=== PATIENT | male | born 1980 | race Caucasian/White ===

== ENCOUNTER 2016-07-28 00:45 | Emergency (ER) | payer OTHER ==
--- NOTE | 2016-07-28 08:00 | RAD ---
RIGHT ANKLE 3 VIEWS HISTORY: Twisted right ankle, lateral pain. COMPARISONS: None. TECHNIQUE: Frontal, lateral, and oblique views of the right ankle. ALIGNMENT: Grossly unremarkable. Ankle mortise intact. FRACTURE: No displaced acute fracture. SOFT TISSUES: Lateral soft tissue swelling. Joint effusion is evident. RADIOOPAQUE FOREIGN BODY: None. IMPRESSION: No gross malalignment or displaced acute fracture noted. Lateral soft tissue swelling and joint effusion.
== END 2016-07-28 01:56 | disposition home or self-care (01) ==
LOC: ED 00:45
DX: M25.571 Pain in right ankle and joints of right foot (principal); Z53.21 Procedure and treatment not carried out due to patient leaving prior to being seen by health care provider; X50.0XXA Overexertion from strenuous movement or load, initial encounter; Y93.H3 Activity, building and construction; Y92.009 Unspecified place in unspecified non-institutional (private) residence as the place of occurrence of the external cause